=== PATIENT | male | born 1975 | race Two or more races ===

== ENCOUNTER → 2020-03-18 09:56 | Outpatient (BNVA) | payer OTHER, SELFPAY | PROVIDERS: PCP Internal Medicine; Referring Provider Internal Medicine; Visit Provider Hospitalist | DX: G47.33 Obstructive sleep apnea (adult) (pediatric) (principal); I25.10 Atherosclerotic heart disease of native coronary artery without angina pectoris; Z98.61 Coronary angioplasty status; Z91.030 Bee allergy status; Z86.19 Personal history of other infectious and parasitic diseases; Z99.89 Dependence on other enabling machines and devices; Z79.899 Other long term (current) drug therapy | CPT/HCPCS: 90686 ==

== ENCOUNTER → 2020-06-10 09:33 | Outpatient (BNVA) | payer OTHER, SELFPAY | PROVIDERS: PCP Internal Medicine; Visit Provider Hospitalist | DX: Z76.89 Persons encountering health services in other specified circumstances (principal) ==

== ENCOUNTER 2020-08-08 10:00 | Outpatient (REF) | payer OTHER, SELFPAY ==
--- NOTE | 2020-08-08 10:56 | ECG_ITS ---
Test Reason : J44.9 Blood Pressure : / mmHG Vent. Rate : 062 BPM Atrial Rate : 062 BPM P-R Int : 150 ms QRS Dur : 090 ms QT Int : 408 ms P-R-T Axes : 038 063 011 degrees QTc Int : 414 ms Normal sinus rhythm Normal ECG No previous ECGs available Referred By: Maximino Plascencia Electronically Signed By:MARAL MERCADO MD
[2020-08-08 11:48] LABS: MANUAL DIFF FLAG NO
[2020-08-08 11:53] LABS: Basophils Percent Auto 0.4 % (0-2); Eosinophils Percent Auto 0.4 % (0-4); Hematocrit 47.9 % (42-52); Hemoglobin 15.9 g/dl (14.0-18.0); Imm Gran Abs Auto 0.02 X10*3/uL (0.00-0.03); Imm Gran Pct Auto 0.4 % (0.0-0.4); Lymphocytes Percent Auto 38.1 % (20-40); Mean Corpuscular HGB Conc 33.2 g/dl (31.0-36.0); Mean Corpuscular Hemoglobin 29.7 pg (27.0-33.0); Mean Corpuscular Volume 89.4 fL (80-98); Mean Platelet Volume 9.2 fL (9.4-12.4); Monocytes Absolute Auto 0.4 X10*3/uL (0.1-1.2); Monocytes Percent Auto 7.3 % (2-11); Neutrophils Absolute Auto 2.8 X10*3/uL (2.0-8.3); Neutrophils Percent Auto 53.4 % (45-73); Platelet Count 277 X10*3/uL (160-400); Red Blood Count 5.36 X10*6/uL (4.60-5.80); Red Cell Distribution Width 12.7 % (11.0-16.0); White Blood Count 5.2 X10*3/uL (4.8-10.8)
[2020-08-08 12:17] LABS: Troponin-I High Sensitivity < 3.5 ng/L (<3.5-35.0)
[2020-08-08 12:34] LABS: SARS COV2 IgG Positive (Negative)
[2020-08-08 12:38] LABS: TSH reflex Free T4 2.81 uIU/mL (0.32-4.0)
[2020-08-08 13:17] LABS: Erythrocyte Sedimentation Rate 4 MM/HR (0-15)
== END 2020-08-08 10:01 | disposition home or self-care (01) ==
LOC: HO.LAB 10:00
PROVIDERS: PCP Internal Medicine; Visit Provider Hospitalist
DX: R06.00 Dyspnea, unspecified (principal); J44.9 Chronic obstructive pulmonary disease, unspecified; G47.33 Obstructive sleep apnea (adult) (pediatric); I25.10 Atherosclerotic heart disease of native coronary artery without angina pectoris; Z20.822 Contact with and (suspected) exposure to COVID-19; Z91.030 Bee allergy status; Z99.89 Dependence on other enabling machines and devices; Z95.1 Presence of aortocoronary bypass graft; Z79.82 Long term (current) use of aspirin; Z79.899 Other long term (current) drug therapy
CPT/HCPCS: 36415; 84443; 84484; 85025; 85652; 86769; 93005

== ENCOUNTER → 2020-11-11 11:03 | Outpatient (BNVA) | payer OTHER, SELFPAY | PROVIDERS: PCP Internal Medicine; Visit Provider Hospitalist ==

== ENCOUNTER → 2021-06-14 10:34 | Outpatient (BNVA) | payer OTHER, SELFPAY | PROVIDERS: PCP Internal Medicine; Visit Provider Hospitalist | DX: Z23 Encounter for immunization (principal); G47.33 Obstructive sleep apnea (adult) (pediatric); R06.02 Shortness of breath; I25.10 Atherosclerotic heart disease of native coronary artery without angina pectoris; F43.10 Post-traumatic stress disorder, unspecified | CPT/HCPCS: 90471; 90686 ==

== ENCOUNTER → 2022-08-03 09:52 | Outpatient (BNVA) | payer OTHER, SELFPAY | PROVIDERS: PCP Internal Medicine; Visit Provider Hospitalist | DX: Z13.89 Encounter for screening for other disorder (principal) ==

== ENCOUNTER 2023-02-06 09:59 | Outpatient (AMB) | payer OTHER, SELFPAY ==
[2023-02-06 10:10] VITALS: BP 128/70; PULSE 67; O2SAT 98; BMI 30.6
--- NOTE | 2023-02-06 10:10 | A.OFFVIS_ITS ---
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 He did recover from the COVID-19 infection and at the time had issues with shortness of breath and coughing that were persistent 4 months. Therefore became difficult for him to tolerate the CPAP. During the last visit we talked about the importance of going back on it. We had decrease the pressure down to CPAP of 6. even that low pressure is hard for him to use the machine. He has been using a nasal mask. We did have him use the nasal mask and coming for follow-up. Today he did bring his machine in we were able to downloaded. Last night his AHI was up to 34. the average for the week has been around 12.7 events per hour. He understands this too much in the level of CPAP support does not appear to be enough for him. Therefore we adjusted his machine and provide him with a fullface mask. He will try to get uses a fullface mask and will try to slowly increase the CPAP pressure. If he cannot tolerate the CPAP pressure and or his AHI continues to be elevated then a CPAP titration study will be warranted as he may benefit from a BiPAP because of difficulties with CPAP. 06/10/2020 the patient has a telephone visit today. Again he still having difficulties with the CPAP. Initially was tolerating the CPAP well until he developed COVID-19 infection. After the COVID-19 infection he has not been able to handle the pressures. Feels like he cannot breathe with the CPAP. Therefore, I did decrease the pressures down to 6 cm to see if he can tolerate that. He did use it a few times, but, still with elevated AHI of 12.6. Unfortunately he needs higher pressures. The only waiting to provide him the higher pressures would be through using BiPAP at this time. Due to the COVID-19 infections in the pandemic we are not able to perform a titration study. Due to the fact that he has significant coronary artery disease and significant cardiovascular risk factors we need to provide him with the effective therapy to minimize worsening prognosis from a cardiovascular standpoint. Therefore, requesting him to start BiPAP at this time. With the BiPAP he will be able to tolerate the higher pressures and therefore we can titrate the pressures accordingly in order to improve his severe OLAMIDE. I did talk to his local [employer] company regarding this and I did send a prescription over for him to get facilitated with BiPAP as soon as possible started with a pressure of 8/4. 08/08/2020 the patient is here for pulmonary follow-up visit. He did get the BiPAP machine starting at 8/4. He is tolerating the therapy much better. He does use it for more than 4 hours. The therapy has been affecting beneficial. I did download the machine the peers that he still having significant apneic episodes. His AHI still approximately 25 mainly apneic episodes. He does use a nasal mask. No significant leakage. I do believe that patient does require additional pressure, but, need to go up slowly in order for him to tolerated. Therefore increased to 9/5 and her reassess in 2 weeks to see if we need to adjusted further. In the meantime he stating that he has is episodes of nervousness. There has times where he gets agitated in gets restless and very shaky. He is concerned because he got like this prior to his myocardial infarction. He continues to use his cardiac medications with very good adherence. He has been depressed he has been gaining weight which also is depressing him as well. Therefore, patient will undergo blood work in addition to an EKG. 11/11/2020 the patient is here for pulmonary follow-up visit. Overall he is doing very well from sleep apnea standpoint. He is tolerating the BiPAP in the therapy has been effective in beneficial. He does use it for more than 4 hours a night. In based on the downloaded data his AHI is below 5. He is having some central apneas about to episodes an hour, but at this point will continue with current settings as he has tolerated doing well and seemed to be effective. The patient does have episodes of shortness of breath. The episodes appeared to be transient in usually associated with tremors and sense of panic. 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 The boiler house supervisor did mention the concerns for PTSD the as the results of the heart attack. At this point the episodes appear to be related to panic. He would benefit from additional psychological evaluation as this is affecting his cardiac and pulmonary status. In the meantime continue with the current BiPAP therapy. 06/14/2021 the patient is here for a pulmonary follow-up visit. He continues to use the BiPAP 04/01. Seems to be tolerating therapy much better. His AHI is down to 3.6 which is excellent for him. He is using about 70% of the time. The therapy has been affecting beneficial. He does have significant cardiac history. He does have an elevated cholesterol however and also has a very low HDL. 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 In the meantime the patient also has been dealing with this episodes of panic attacks . Sometimes these episodes have been from now for reason when he starts shaking in getting very uncomfortable. Although the patient is at risk for panic attacks I do believe he also has a cardiac history. It will be very reasonable for him to get an event monitor. I will relate this to his primary care doctor. In the meantime he will be sees seeking out different counseling programs in order to start counseling therapy. Right now during the pandemic this has been very difficult to arrange for patient's due to the lack of resources. 02/09/2022 the patient is here for pulmonary follow-up visit. He has been going to a lot of difficulty issues with increased stressors in the family. He has been preoccupied with all those issues. He has also had a few people dying the family is been very affected by the passing. In view of all these things the patient has not been using his BiPAP regularly. Also, he states that when he does use it it causes abdominal discomfort and gas pain. Explained to him that is likely swallowing the air. I did explain to him that I will try decreasing the pressure is some. Although, I know that it is likely that the current settings are more the therapeutic range to maintaining AHI below 5. 08/03/2022 the patient is here for a pulmonary follow-up visit. The patient has been feeling a little better. He has been working on exercising. He has unfortunately gained some weight which she is upset about. He is starting to walk on the treadmill. In the meantime he is trying to use the BiPAP. He had a period of time where he stopped using it and now getting back to the rhythm. The patient had his BiPAP adjusted to a lower pressure on 02/28. He was having abdominal distention and bloating. I am hopeful that with the lower pressure he tolerated better. Respiratory dobbins the patient is doing better he does not use any inhalers. 02/06/2023 the patient is here for pulmonary follow-up visit. The patient has not been using the BiPAP. He is having significant amount of stress in his life and sometimes he falls asleep without the BiPAP. He has a hard time putting the BiPAP on because then he has difficulty sleeping already. Therefore we talked about alternative options such as positional therapy. Will go ahead and request an overnight oximetry to assess his oxygen his heart rate specially because he has significant cardiovascular disease. Therefore he can try positional therapy and we can assess his progress. Otherwise we can consider a dental appliance. Currently he does have 1 wisdom tooth that is causing significant pain and likely needs to be removed. Therefore I will give him a course of antibiotics. He can not talk to the dentist regarding a oral mandibular device. Otherwise I can refer him to a local dentist that may be able to help him with that. The other option would be a hypoglossal nerve stimulator. The patient is not interested in any surgical interventions at this time. Will continue to discuss alternatives. He understands that the gold standard in the best treatment for his underlying obstructive sleep apnea is to go back to the BiPAP. The patient is also describing some chest tightness. He is has issues with anxiety and panic attacks. He had 1 episode recently in [place]. The patient gets very worked up very stressed. The patient denies any wheezing or chest tightness from bronchospasms. If he continues to have symptoms will request pulmonary function studies to assess for small airways disease and for the need of bronchodilator therapy. [facility] Medical History (Updated 08/05/22 @ 20:48 by Maximino Plascencia MD) OLAMIDE treated with BiPAP PTSD (post-traumatic stress disorder) Dyspnea OLAMIDE on CPAP CAD (coronary artery disease) OLAMIDE (obstructive sleep apnea) Social History (Updated 02/09/22 @ 10:40 by HELENA Luna) Patient Tobacco Use Status: Never used Tobacco Review of Systems Const Reports daytime sleepiness, Reports difficulty sleeping, Reports headache(s), Denies night sweats and Reports weight gain ENT Denies change in voice, Reports headache(s), Denies lip swelling, Denies mouth pain, Reports nasal congestion, Reports nasal discharge and Denies tongue swelling Card Denies chest pain and Denies dyspnea Resp Denies cough and Denies dyspnea GI Reports abdominal pain, Reports GI cramping and Reports excessive flatus Musc Denies no additional complaints Neuro Denies Neuro-related abnormal movements and Reports headache(s) Psych Denies no additional complaints, Reports anxiety, Reports irritability and Reports panic attacks Ras/Lymph Denies easy bleeding and Denies lymphadenopathy Aller/Immun Denies lip swelling and Denies tongue swelling Physical Exam Vital Signs: Last Vital Signs Pulse 67 02/06/23 10:10 BP 128/70 02/06/23 10:10 Pulse Ox 98 02/06/23 10:10 Oxygen Delivery Method Room Air 02/06/23 10:10 BMI result Body Mass Index 30.6 Const General: comfortable and alert Neck Neck: Yes normal visual inspection, Yes full ROM and Yes no lymphadenopathy Chest Chest palpation & inspection: normal inspection of the chest Resp Auscultation: clear to auscultation bilaterally Cardio Rate: regular rate Rhythm: regular rhythm Heart sounds: S1 normal heart sound present and S2 normal heart sound present GI Palpation (GI): Soft to palpation and nontender Auscultation: normal bowel sounds Skin General skin exam: rashes and/or lesions noted Assessment & Plan Assessment & Plan (1) CAD (coronary artery disease): Code(s): I25.10 - Atherosclerotic heart disease of [place] coronary artery without angina pectoris Qualifiers: Associated angina: without angina Coronary Disease-Associated Artery/Lesion type: [place] artery [place] vs. transplanted heart: [place] heart Qualified Code(s): I25.10 - Atherosclerotic heart disease of [place] coronary artery without angina pectoris (2) OLAMIDE treated with BiPAP: Code(s): G47.33 - Obstructive sleep apnea (adult) (pediatric) (3) Dyspnea: Code(s): R06.00 - Dyspnea, unspecified Qualifiers: Dyspnea type: dyspnea on exertion Qualified Code(s): R06.09 - Other forms of dyspnea Plan BIPAP therapy 04/01, 02/28. Needs to start using it regularly. We did talk about OMD if continues to have a hard time with the BIPAP overnight oximetry with positional therapy continue cardioprotective meds Consider PFTs F/U 6 months Orders: Orders Overnight Pulse Oximetry Today I25.10 - Atherosclerotic heart disease of [place] coronary artery without angina pectoris, R06.00 - Dyspnea, unspecified Medications: New amoxicillin-pot clavulanate 875-125 mg 1 tab PO BID 10 days 20 tabs 0RF Coding Level of Care Code Est Pt Level 4 (54111) Diagnoses Coronary artery disease involving [place] coronary artery of [place] heart without angina pectoris I25.10 Associated angina: without angina Coronary Disease-Associated Artery/Lesion type: [place] artery [place] vs. transplanted heart: [place] heart OLAMIDE treated with BiPAP G47.33 Dyspnea on exertion R06.09 Dyspnea type: dyspnea on exertion Time Spent (min) 20
== END 2023-02-06 10:48 | disposition home or self-care (01) ==
PROVIDERS: PCP Internal Medicine; Visit Provider Hospitalist
DX: I25.10 Atherosclerotic heart disease of native coronary artery without angina pectoris (principal); G47.33 Obstructive sleep apnea (adult) (pediatric); R06.09 Other forms of dyspnea
CPT/HCPCS: 99214

== ENCOUNTER → 2023-02-06 09:59 | Outpatient (BNVA) | payer OTHER, SELFPAY | PROVIDERS: PCP Internal Medicine; Visit Provider Hospitalist ==

== ENCOUNTER 2023-08-09 10:38 | Outpatient (AMB) | payer OTHER, SELFPAY ==
--- NOTE | 2023-08-09 10:45 | MHC.OFFVIS ---
Intake Vital Signs 08/09/23 10:56 Height 5 ft 9 in Weight 205 lb BMI 30.3 BP 128/70 Blood Pressure Location Lt brachial Position Sitting Pulse 70 Pulse Source Pulse Oximeter Pulse Oximetry (%) 97 Oxygen Delivery Method Room Air Intake Visit Reasons: Asthma Heat Treater Required: No Allergies Bee Stings Allergy (Mild, Uncoded 08/09/23 11:03) Hives HPI HPI Comments History of Present Illness Details The patient is a 47-year-old gentleman with a known history of CAD status post PCI in addition to obstructive sleep apnea on CPAP. He did recover from the COVID-19 infection and at the time had issues with shortness of breath and coughing that were persistent 4 months. Therefore became difficult for him to tolerate the CPAP. During the last visit we talked about the importance of going back on it. We had decrease the pressure down to CPAP of 6. even that low pressure is hard for him to use the machine. He has been using a nasal mask. We did have him use the nasal mask and coming for follow-up. Today he did bring his machine in we were able to downloaded. Last night his AHI was up to 34. the average for the week has been around 12.7 events per hour. He understands this too much in the level of CPAP support does not appear to be enough for him. Therefore we adjusted his machine and provide him with a fullface mask. He will try to get uses a fullface mask and will try to slowly increase the CPAP pressure. If he cannot tolerate the CPAP pressure and or his AHI continues to be elevated then a CPAP titration study will be warranted as he may benefit from a BiPAP because of difficulties with CPAP. 02/06/2023 the patient is here for pulmonary follow-up visit. The patient has not been using the BiPAP. He is having significant amount of stress in his life and sometimes he falls asleep without the BiPAP. He has a hard time putting the BiPAP on because then he has difficulty sleeping already. Therefore we talked about alternative options such as positional therapy. Will go ahead and request an overnight oximetry to assess his oxygen his heart rate specially because he has significant cardiovascular disease. Therefore he can try positional therapy and we can assess his progress. Otherwise we can consider a dental appliance. Currently he does have 1 wisdom tooth that is causing significant pain and likely needs to be removed. Therefore I will give him a course of antibiotics. He can not talk to the dentist regarding a oral mandibular device. Otherwise I can refer him to a local dentist that may be able to help him with that. The other option would be a hypoglossal nerve stimulator. The patient is not interested in any surgical interventions at this time. Will continue to discuss alternatives. He understands that the gold standard in the best treatment for his underlying obstructive sleep apnea is to go back to the BiPAP. The patient is also describing some chest tightness. He is has issues with anxiety and panic attacks. He had 1 episode recently in [place]. The patient gets very worked up very stressed. The patient denies any wheezing or chest tightness from bronchospasms. If he continues to have symptoms will request pulmonary function studies to assess for small airways disease and for the need of bronchodilator therapy. 08/09/2023 the patient is here for a pulmonary follow-up visit. Overall the patient has been doing okay from a respiratory status. Unfortunately his BiPAP stop working. It will not turn on. Therefore he thought that the [employer] may have remotely stop the machine from working. I did emphasize to him that they would not do that. Most likely machine is not working correctly or the plug is not working. Therefore, I did call the [employer] company. They will reach out to him to see how they can evaluate the machine. The meantime he is going to try different plug or cord. Should be using it. When he does not use it he does have evidence of documented sleep apnea from his . She has not wake him up. He understands he has a cardiac condition and has increased cardiovascular risk if he does not use the BiPAP or the PAP therapy. Therefore, once this working he should start using it quickly. He will bring it into the next visit. From a respiratory status is doing well. He has not required any rescue inhaler. He continues to have the issues with anxiety and stress specially since they are taking care of multiple people at this time including parents and children and grandchildren. He has not been exercising as much. He is gaining weight. He knows that he needs to start exercising regularly because the wait will also worsen his sleep apnea and also cardiovascular risk. [facility] Medical History (Updated 08/05/22 @ 20:48 by Maximino Plascencia MD) OLAMIDE treated with BiPAP PTSD (post-traumatic stress disorder) Dyspnea OLAMIDE on CPAP CAD (coronary artery disease) OLAMIDE (obstructive sleep apnea) Social History (Updated 02/09/22 @ 10:40 by HELENA Luna) Patient Tobacco Use Status: Never used Tobacco Review of Systems Const Reports daytime sleepiness, Reports difficulty sleeping, Reports headache(s), Denies night sweats and Reports weight gain ENT Denies change in voice, Reports headache(s), Denies lip swelling, Denies mouth pain, Reports nasal congestion, Reports nasal discharge and Denies tongue swelling Card Denies chest pain and Denies dyspnea Resp Denies cough and Denies dyspnea GI Reports abdominal pain, Reports GI cramping and Reports excessive flatus Musc Denies no additional complaints Neuro Denies Neuro-related abnormal movements and Reports headache(s) Psych Denies no additional complaints, Reports anxiety, Reports irritability and Reports panic attacks Ras/Lymph Denies easy bleeding and Denies lymphadenopathy Aller/Immun Denies lip swelling and Denies tongue swelling Physical Exam Vital Signs: Last Vital Signs Pulse 70 08/09/23 10:56 BP 128/70 08/09/23 10:56 Pulse Ox 97 08/09/23 10:56 Oxygen Delivery Method Room Air 08/09/23 10:56 BMI result Body Mass Index 30.3 Const General: comfortable and alert Neck Neck: Yes normal visual inspection, Yes full ROM and Yes no lymphadenopathy Chest Chest palpation & inspection: normal inspection of the chest Resp Auscultation: clear to auscultation bilaterally Cardio Rate: regular rate Rhythm: regular rhythm Heart sounds: S1 normal heart sound present and S2 normal heart sound present GI Palpation (GI): Soft to palpation and nontender Auscultation: normal bowel sounds Skin General skin exam: rashes and/or lesions noted Office Procedures Flu Questionnaire Does the patient have a severe egg allergy?: No Does the patient have severe life threatening allergies?: No Does the patient have a fever or illness today?: No Has the patient ever had Guillain-[place] Syndrome?: No Has the patient ever had any past reaction to a flu shot?: No Immunizations flu vacc [id number] 6mos up(PF) 60 mcg(15 mcgx4)/0.5 mL IM syringe Performing Provider: Maximino Plascencia MD [place] [facility] [place] [facility] [place] Administered by: Tonie Fuentes LPN on 08/09/23 11:25 Dose Route Admin Location Dispensed Lot Number Expiration Date [employer] 0.5 mL IM Left Deltoid 0.5 mL [id number] 11/24/23 [id number] PK Clean VIS Given Date VIS Provided VIS Publication Date 08/09/23 Single Vaccine 20 Eligibility Eligibility Date Funding Source Not VF Eligible 08/09/23 Private Assessment & Plan Assessment & Plan (1) CAD (coronary artery disease): Code(s): I25.10 - Atherosclerotic heart disease of [place] coronary artery without angina pectoris Qualifiers: Coronary Disease-Associated Artery/Lesion type: [place] artery [place] vs. transplanted heart: [place] heart Associated angina: without angina Qualified Code(s): I25.10 - Atherosclerotic heart disease of [place] coronary artery without angina pectoris (2) OLAMIDE treated with BiPAP: Code(s): G47.33 - Obstructive sleep apnea (adult) (pediatric) (3) Dyspnea: Code(s): R06.00 - Dyspnea, unspecified Qualifiers: Dyspnea type: dyspnea on exertion Qualified Code(s): R06.09 - Other forms of dyspnea Plan BIPAP therapy 04/01, 02/28. Needs to start using it regularly. DME to evaluate the machine continue cardioprotective meds Flu shot F/U 4 months Orders: Orders Influenza [id number] Immunization Today G47.33 - Obstructive sleep apnea (adult) (pediatric), Z99.89 - Dependence on other enabling machines and devices Medications: Discontinued amoxicillin-pot clavulanate 875-125 mg Discontinued Reason: Patient Completed Course 1 tab PO BID 10 days 20 tabs 0RF Coding Level of Care Code Est Pt Level 4 (30371) Diagnoses Coronary artery disease involving [place] coronary artery of [place] heart without angina pectoris I25.10 Coronary Disease-Associated Artery/Lesion type: [place] artery [place] vs. transplanted heart: [place] heart Associated angina: without angina OLAMIDE treated with BiPAP G47.33 Dyspnea on exertion R06.09 Dyspnea type: dyspnea on exertion Time Spent (min) 40
[2023-08-09 10:56] VITALS: BP 128/70; PULSE 70; O2SAT 97; BMI 30.3
== END 2023-08-09 11:16 | disposition home or self-care (01) ==
PROVIDERS: PCP Internal Medicine; Visit Provider Hospitalist
DX: I25.10 Atherosclerotic heart disease of native coronary artery without angina pectoris (principal); G47.33 Obstructive sleep apnea (adult) (pediatric); R06.09 Other forms of dyspnea; Z99.89 Dependence on other enabling machines and devices
CPT/HCPCS: 99214

== ENCOUNTER → 2023-08-09 10:38 | Outpatient (BNVA) | payer OTHER, SELFPAY | PROVIDERS: PCP Internal Medicine; Visit Provider Hospitalist | DX: R06.09 Other forms of dyspnea (principal); I25.10 Atherosclerotic heart disease of native coronary artery without angina pectoris; G47.33 Obstructive sleep apnea (adult) (pediatric); Z23 Encounter for immunization | CPT/HCPCS: 90471; 90686 ==

== ENCOUNTER 2023-12-11 11:01 | Outpatient (AMB) | payer OTHER, SELFPAY ==
--- NOTE | 2023-12-11 11:06 | MHC.OFFVIS ---
Vital Signs 12/11/23 11:07 Height 5 ft 9 in Weight 204 lb 2.369 oz BMI 30.1 BP 118/70 Blood Pressure Location Lt brachial Position Sitting Pulse 66 Pulse Source Pulse Oximeter Pulse Oximetry (%) 97 Oxygen Delivery Method Room Air Intake Visit Reasons: Asthma Station Superintendent Required: No Allergies Bee Stings Allergy (Mild, Uncoded 12/11/23 11:11) Hives HPI Comments Details: The patient is a 48-year-old gentleman with a known history of CAD status post PCI in addition to obstructive sleep apnea on CPAP. He did recover from the COVID-19 infection and at the time had issues with shortness of breath and coughing that were persistent 4 months. Therefore became difficult for him to tolerate the CPAP. During the last visit we talked about the importance of going back on it. We had decrease the pressure down to CPAP of 6. even that low pressure is hard for him to use the machine. He has been using a nasal mask. We did have him use the nasal mask and coming for follow-up. Today he did bring his machine in we were able to downloaded. Last night his AHI was up to 34. the average for the week has been around 12.7 events per hour. He understands this too much in the level of CPAP support does not appear to be enough for him. Therefore we adjusted his machine and provide him with a fullface mask. He will try to get uses a fullface mask and will try to slowly increase the CPAP pressure. If he cannot tolerate the CPAP pressure and or his AHI continues to be elevated then a CPAP titration study will be warranted as he may benefit from a BiPAP because of difficulties with CPAP. 02/06/2023 the patient is here for pulmonary follow-up visit. The patient has not been using the BiPAP. He is having significant amount of stress in his life and sometimes he falls asleep without the BiPAP. He has a hard time putting the BiPAP on because then he has difficulty sleeping already. Therefore we talked about alternative options such as positional therapy. Will go ahead and request an overnight oximetry to assess his oxygen his heart rate specially because he has significant cardiovascular disease. Therefore he can try positional therapy and we can assess his progress. Otherwise we can consider a dental appliance. Currently he does have 1 wisdom tooth that is causing significant pain and likely needs to be removed. Therefore I will give him a course of antibiotics. He can not talk to the dentist regarding a oral mandibular device. Otherwise I can refer him to a local dentist that may be able to help him with that. The other option would be a hypoglossal nerve stimulator. The patient is not interested in any surgical interventions at this time. Will continue to discuss alternatives. He understands that the gold standard in the best treatment for his underlying obstructive sleep apnea is to go back to the BiPAP. The patient is also describing some chest tightness. He is has issues with anxiety and panic attacks. He had 1 episode recently in [place]. The patient gets very worked up very stressed. The patient denies any wheezing or chest tightness from bronchospasms. If he continues to have symptoms will request pulmonary function studies to assess for small airways disease and for the need of bronchodilator therapy. 08/09/2023 the patient is here for a pulmonary follow-up visit. Overall the patient has been doing okay from a respiratory status. Unfortunately his BiPAP stop working. It will not turn on. Therefore he thought that the [employer] may have remotely stop the machine from working. I did emphasize to him that they would not do that. Most likely machine is not working correctly or the plug is not working. Therefore, I did call the [employer] company. They will reach out to him to see how they can evaluate the machine. The meantime he is going to try different plug or cord. Should be using it. When he does not use it he does have evidence of documented sleep apnea from his . She has not wake him up. He understands he has a cardiac condition and has increased cardiovascular risk if he does not use the BiPAP or the PAP therapy. Therefore, once this working he should start using it quickly. He will bring it into the next visit. From a respiratory status is doing well. He has not required any rescue inhaler. He continues to have the issues with anxiety and stress specially since they are taking care of multiple people at this time including parents and children and grandchildren. He has not been exercising as much. He is gaining weight. He knows that he needs to start exercising regularly because the wait will also worsen his sleep apnea and also cardiovascular risk. 12/11/2023 The patient is here for apulmonary follow up visit. The patient has not been using the BIPAP. Has not been able to sleep with it. He does have increase time time drowsiness and panic attacks. His EPWORTH score is elevated at 9/24. The patient has significant cardiovascular risk factors. Would be beneficial to repeat a sleep study to assess his degree of OLAMIDE in order to consider further adjustments of his PAP therapy or alternative therapies. The patient also has been having insomnia. He does not want to take any rx medicine for it. He is willing to take Melatonin. I will send a script to the pharmacy. We will follow up after his sleep study. [facility] Medical History (Updated 12/11/23 @ 21:51 by Maximino Plascencia MD) Insomnia OLAMIDE treated with BiPAP PTSD (post-traumatic stress disorder) Dyspnea OLAMIDE on CPAP CAD (coronary artery disease) OLAMIDE (obstructive sleep apnea) Social History (Updated 02/09/22 @ 10:40 by HELENA Luna) Patient Tobacco Use Status: Never used Tobacco Review of Systems Const Reports daytime sleepiness, Reports difficulty sleeping, Reports headache(s), Denies night sweats and Reports weight gain ENT Denies change in voice, Reports headache(s), Denies lip swelling, Denies mouth pain, Reports nasal congestion, Reports nasal discharge and Denies tongue swelling Card Denies chest pain and Denies dyspnea Resp Denies cough and Denies dyspnea GI Reports abdominal pain, Reports GI cramping and Reports excessive flatus Musc Denies no additional complaints Neuro Denies Neuro-related abnormal movements and Reports headache(s) Psych Denies no additional complaints, Reports anxiety, Reports irritability and Reports panic attacks Ras/Lymph Denies easy bleeding and Denies lymphadenopathy Aller/Immun Denies lip swelling and Denies tongue swelling Physical Exam Vital Signs: Last Vital Signs Pulse 66 12/11/23 11:07 BP 118/70 12/11/23 11:07 Pulse Ox 97 12/11/23 11:07 Oxygen Delivery Method Room Air 12/11/23 11:07 BMI result Body Mass Index 30.1 Const General: comfortable and alert Neck Neck: Yes normal visual inspection, Yes full ROM and Yes no lymphadenopathy Chest Chest palpation & inspection: normal inspection of the chest Resp Auscultation: clear to auscultation bilaterally Cardio Rate: regular rate Rhythm: regular rhythm Heart sounds: S1 normal heart sound present and S2 normal heart sound present GI Palpation (GI): Soft to palpation and nontender Auscultation: normal bowel sounds Skin General skin exam: rashes and/or lesions noted Assessment & Plan Assessment & Plan (1) CAD (coronary artery disease): Code(s): I25.10 - Atherosclerotic heart disease of [place] coronary artery without angina pectoris Category: Medical Qualifiers: Coronary Disease-Associated Artery/Lesion type: [place] artery [place] vs. transplanted heart: [place] heart Associated angina: without angina Qualified Code(s): I25.10 - Atherosclerotic heart disease of [place] coronary artery without angina pectoris (2) OLAMIDE treated with BiPAP: Code(s): G47.33 - Obstructive sleep apnea (adult) (pediatric) Category: Medical (3) Dyspnea: Code(s): R06.00 - Dyspnea, unspecified Category: Medical Qualifiers: Dyspnea type: dyspnea on exertion Qualified Code(s): R06.09 - Other forms of dyspnea (4) Insomnia: Code(s): G47.00 - Insomnia, unspecified Category: Medical Qualifiers: Insomnia type: primary Qualified Code(s): F51.01 - Primary insomnia Plan Requesting PSG, ideally split study continue cardioprotective meds start Melatonin for sleep F/U 4 months Orders: Orders RT PSG in-lab sleep study Today G47.33 - Obstructive sleep apnea (adult) (pediatric) Medications: New melatonin 5 mg PO BEDTIME 30 days PRN 30 tabs 10RF sleep Coding Level of Care Code Est Pt Level 4 (79211) Diagnoses Coronary artery disease involving [place] coronary artery of [place] heart without angina pectoris I25.10 Coronary Disease-Associated Artery/Lesion type: [place] artery [place] vs. transplanted heart: [place] heart Associated angina: without angina OLAMIDE treated with BiPAP G47.33 Dyspnea on exertion R06.09 Dyspnea type: dyspnea on exertion Primary insomnia F51.01 Insomnia type: primary Time Spent (min) 17
[2023-12-11 11:07] VITALS: BP 118/70; PULSE 66; O2SAT 97; BMI 30.1
== END 2023-12-11 11:26 | disposition home or self-care (01) ==
PROVIDERS: PCP Internal Medicine; Visit Provider Hospitalist
DX: I25.10 Atherosclerotic heart disease of native coronary artery without angina pectoris (principal); G47.33 Obstructive sleep apnea (adult) (pediatric); R06.09 Other forms of dyspnea; F51.01 Primary insomnia
CPT/HCPCS: 99214

== ENCOUNTER → 2023-12-11 11:01 | Outpatient (BNVA) | payer OTHER, SELFPAY | PROVIDERS: PCP Internal Medicine; Visit Provider Hospitalist ==

== ENCOUNTER 2024-04-17 14:31 | Outpatient (AMB) | payer OTHER, SELFPAY ==
[2024-04-17 14:47] VITALS: BP 102/70; PULSE 69; O2SAT 98; BMI 30.1
--- NOTE | 2024-04-17 14:47 | MHC.OFFVIS ---
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 He did recover from the COVID-19 infection and at the time had issues with shortness of breath and coughing that were persistent 4 months. Therefore became difficult for him to tolerate the CPAP. During the last visit we talked about the importance of going back on it. We had decrease the pressure down to CPAP of 6. even that low pressure is hard for him to use the machine. He has been using a nasal mask. We did have him use the nasal mask and coming for follow-up. Today he did bring his machine in we were able to downloaded. Last night his AHI was up to 34. the average for the week has been around 12.7 events per hour. He understands this too much in the level of CPAP support does not appear to be enough for him. Therefore we adjusted his machine and provide him with a fullface mask. He will try to get uses a fullface mask and will try to slowly increase the CPAP pressure. If he cannot tolerate the CPAP pressure and or his AHI continues to be elevated then a CPAP titration study will be warranted as he may benefit from a BiPAP because of difficulties with CPAP. 02/06/2023 the patient is here for pulmonary follow-up visit. The patient has not been using the BiPAP. He is having significant amount of stress in his life and sometimes he falls asleep without the BiPAP. He has a hard time putting the BiPAP on because then he has difficulty sleeping already. Therefore we talked about alternative options such as positional therapy. Will go ahead and request an overnight oximetry to assess his oxygen his heart rate specially because he has significant cardiovascular disease. Therefore he can try positional therapy and we can assess his progress. Otherwise we can consider a dental appliance. Currently he does have 1 wisdom tooth that is causing significant pain and likely needs to be removed. Therefore I will give him a course of antibiotics. He can not talk to the dentist regarding a oral mandibular device. Otherwise I can refer him to a local dentist that may be able to help him with that. The other option would be a hypoglossal nerve stimulator. The patient is not interested in any surgical interventions at this time. Will continue to discuss alternatives. He understands that the gold standard in the best treatment for his underlying obstructive sleep apnea is to go back to the BiPAP. The patient is also describing some chest tightness. He is has issues with anxiety and panic attacks. He had 1 episode recently in [place]. The patient gets very worked up very stressed. The patient denies any wheezing or chest tightness from bronchospasms. If he continues to have symptoms will request pulmonary function studies to assess for small airways disease and for the need of bronchodilator therapy. 08/09/2023 the patient is here for a pulmonary follow-up visit. Overall the patient has been doing okay from a respiratory status. Unfortunately his BiPAP stop working. It will not turn on. Therefore he thought that the [employer] may have remotely stop the machine from working. I did emphasize to him that they would not do that. Most likely machine is not working correctly or the plug is not working. Therefore, I did call the [email or web address] company. They will reach out to him to see how they can evaluate the machine. The meantime he is going to try different plug or cord. Should be using it. When he does not use it he does have evidence of documented sleep apnea from his . She has not wake him up. He understands he has a cardiac condition and has increased cardiovascular risk if he does not use the BiPAP or the PAP therapy. Therefore, once this working he should start using it quickly. He will bring it into the next visit. From a respiratory status is doing well. He has not required any rescue inhaler. He continues to have the issues with anxiety and stress specially since they are taking care of multiple people at this time including parents and children and grandchildren. He has not been exercising as much. He is gaining weight. He knows that he needs to start exercising regularly because the wait will also worsen his sleep apnea and also cardiovascular risk. 04/17/2024 The patient is here for a pulmonary follow up visit. The patient has not been using the BIPAP. Has not been able to sleep with it. He does have increase time time drowsiness and panic attacks. His EPWORTH score is elevated at 10/24. The patient has significant cardiovascular risk factors. Would be beneficial to repeat a sleep study to assess his degree of OLAMIDE in order to consider further adjustments of his PAP therapy or alternative therapies. The patient also has been having insomnia. He does not want to take any rx medicine for it. He is willing to take Melatonin. I will send a script to the pharmacy. We tried scheduling a sleep study, but insurance declined. I did provide him with a f40 mask that I want him to start using. He will start using the BIPAP at this time. In the meantime his breathing is well. [facility] Medical History (Updated 12/11/23 @ 21:51 by Maximino Plascencia MD) Insomnia OLAMIDE treated with BiPAP PTSD (post-traumatic stress disorder) Dyspnea OLAMIDE on CPAP CAD (coronary artery disease) OLAMIDE (obstructive sleep apnea) Social History Patient Tobacco Use Status: Never used Tobacco Review of Systems Const Reports daytime sleepiness, Reports difficulty sleeping, Reports headache(s), Denies night sweats and Reports weight gain ENT Denies change in voice, Reports headache(s), Denies lip swelling, Denies mouth pain, Reports nasal congestion, Reports nasal discharge and Denies tongue swelling Card Denies chest pain and Denies dyspnea Resp Denies cough and Denies dyspnea GI Reports abdominal pain, Reports GI cramping and Reports excessive flatus Musc Denies no additional complaints Neuro Denies Neuro-related abnormal movements and Reports headache(s) Psych Denies no additional complaints, Reports anxiety, Reports irritability and Reports panic attacks Ras/Lymph Denies easy bleeding and Denies lymphadenopathy Aller/Immun Denies lip swelling and Denies tongue swelling Physical Exam Vital Signs: Last Vital Signs Pulse 69 04/17/24 14:47 BP 102/70 04/17/24 14:47 Pulse Ox 98 04/17/24 14:47 Oxygen Delivery Method Room Air 04/17/24 14:47 BMI result Body Mass Index 30.1 Const General: comfortable and alert Neck Neck: Yes normal visual inspection, Yes full ROM and Yes no lymphadenopathy Chest Chest palpation & inspection: normal inspection of the chest Resp Auscultation: clear to auscultation bilaterally Cardio Rate: regular rate Rhythm: regular rhythm Heart sounds: S1 normal heart sound present and S2 normal heart sound present GI Palpation (GI): Soft to palpation and nontender Auscultation: normal bowel sounds Skin General skin exam: rashes and/or lesions noted Assessment & Plan Assessment & Plan (1) CAD (coronary artery disease): Code(s): I25.10 - Atherosclerotic heart disease of [place] coronary artery without angina pectoris Category: Medical Qualifiers: Associated angina: without angina Coronary Disease-Associated Artery/Lesion type: [place] artery [place] vs. transplanted heart: [place] heart Qualified Code(s): I25.10 - Atherosclerotic heart disease of [place] coronary artery without angina pectoris (2) OLAMIDE treated with BiPAP: Code(s): G47.33 - Obstructive sleep apnea (adult) (pediatric) Category: Medical (3) Dyspnea: Code(s): R06.00 - Dyspnea, unspecified Category: Medical Qualifiers: Dyspnea type: dyspnea on exertion Qualified Code(s): R06.09 - Other forms of dyspnea (4) Insomnia: Code(s): G47.00 - Insomnia, unspecified Category: Medical Qualifiers: Insomnia type: primary Qualified Code(s): F51.01 - Primary insomnia Plan Restart BIPAP, will trial F40 continue cardioprotective meds Melatonin for sleep F/U 4-6 months Coding Level of Care Code Est Pt Level 4 (04476) Diagnoses Coronary artery disease involving [place] coronary artery of [place] heart without angina pectoris I25.10 Associated angina: without angina Coronary Disease-Associated Artery/Lesion type: [place] artery [place] vs. transplanted heart: [place] heart OLAMIDE treated with BiPAP G47.33 Dyspnea on exertion R06.09 Dyspnea type: dyspnea on exertion Primary insomnia F51.01 Insomnia type: primary Time Spent (min) 16
== END 2024-04-17 15:10 | disposition home or self-care (01) ==
PROVIDERS: PCP Internal Medicine; Visit Provider Hospitalist
DX: I25.10 Atherosclerotic heart disease of native coronary artery without angina pectoris (principal); G47.33 Obstructive sleep apnea (adult) (pediatric); R06.09 Other forms of dyspnea; F51.01 Primary insomnia
CPT/HCPCS: 99214

== ENCOUNTER 2024-08-14 09:12 | Outpatient (AMB) | payer OTHER, SELFPAY ==
--- NOTE | 2024-08-14 09:17 | A.OFFVIS_ITS ---
Vital Signs 08/14/24 09:18 Height 5 ft 9 in Weight 207 lb 3.752 oz BMI 30.6 BP 122/80 Blood Pressure Location Rt brachial Position Sitting Pulse 78 Pulse Source Pulse Oximeter Pulse Oximetry (%) 96 Oxygen Delivery Method Room Air Intake Visit Reasons: Asthma Allergies Bee Stings Allergy (Mild, Uncoded 08/14/24 09:21) Hives HPI Comments Details: The patient is a 48-year-old gentleman with a known history of CAD status post PCI in addition to obstructive sleep apnea on CPAP. He did recover from the COVID-19 infection and at the time had issues with shortness of breath and coughing that were persistent 4 months. Therefore became difficult for him to tolerate the CPAP. During the last visit we talked about the importance of going back on it. We had decrease the pressure down to CPAP of 6. even that low pressure is hard for him to use the machine. He has been using a nasal mask. We did have him use the nasal mask and coming for follow-up. Today he did bring his machine in we were able to downloaded. Last night his AHI was up to 34. the average for the week has been around 12.7 events per hour. He understands this too much in the level of CPAP support does not appear to be enough for him. Therefore we adjusted his machine and provide him with a fullface mask. He will try to get uses a fullface mask and will try to slowly increase the CPAP pressure. If he cannot tolerate the CPAP pressure and or his AHI continues to be elevated then a CPAP titration study will be warranted as he may benefit from a BiPAP because of difficulties with CPAP. 02/06/2023 the patient is here for pulmonary follow-up visit. The patient has not been using the BiPAP. He is having significant amount of stress in his life and sometimes he falls asleep without the BiPAP. He has a hard time putting the BiPAP on because then he has difficulty sleeping already. Therefore we talked about alternative options such as positional therapy. Will go ahead and request an overnight oximetry to assess his oxygen his heart rate specially because he has significant cardiovascular disease. Therefore he can try positional therapy and we can assess his progress. Otherwise we can consider a dental appliance. Currently he does have 1 wisdom tooth that is causing significant pain and likely needs to be removed. Therefore I will give him a course of antibiotics. He can not talk to the dentist regarding a oral mandibular device. Otherwise I can refer him to a local dentist that may be able to help him with that. The other option would be a hypoglossal nerve stimulator. The patient is not interested in any surgical interventions at this time. Will continue to discuss alternatives. He understands that the gold standard in the best treatment for his underlying obstructive sleep apnea is to go back to the BiPAP. The patient is also describing some chest tightness. He is has issues with anxiety and panic attacks. He had 1 episode recently in [place]. The patient gets very worked up very stressed. The patient denies any wheezing or chest tightness from bronchospasms. If he continues to have symptoms will request pulmonary function studies to assess for small airways disease and for the need of bronchodilator therapy. 08/09/2023 the patient is here for a pulmonary follow-up visit. Overall the patient has been doing okay from a respiratory status. Unfortunately his BiPAP stop working. It will not turn on. Therefore he thought that the [employer] may have remotely stop the machine from working. I did emphasize to him that they would not do that. Most likely machine is not working correctly or the plug is not working. Therefore, I did call the [employer] company. They will reach out to him to see how they can evaluate the machine. The meantime he is going to try different plug or cord. Should be using it. When he does not use it he does have evidence of documented sleep apnea from his . She has not wake him up. He understands he has a cardiac condition and has increased cardiovascular risk if he does not use the BiPAP or the PAP therapy. Therefore, once this working he should start using it quickly. He will bring it into the next visit. From a respiratory status is doing well. He has not required any rescue inhaler. He continues to have the issues with anxiety and stress specially since they are taking care of multiple people at this time including parents and children and grandchildren. He has not been exercising as much. He is gaining weight. He knows that he needs to start exercising regularly because the wait will also worsen his sleep apnea and also cardiovascular risk. 04/17/2024 The patient is here for a pulmonary follow up visit. The patient has not been using the BIPAP. Has not been able to sleep with it. He does have increase time time drowsiness and panic attacks. His EPWORTH score is elevated at 10/24. The patient has significant cardiovascular risk factors. Would be beneficial to repeat a sleep study to assess his degree of OLAMIDE in order to consider further adjustments of his PAP therapy or alternative therapies. The patient also has been having insomnia. He does not want to take any rx medicine for it. He is willing to take Melatonin. I will send a script to the pharmacy. We tried scheduling a sleep study, but insurance declined. I did provide him with a f40 mask that I want him to start using. He will start using the BIPAP at this time. In the meantime his breathing is well. 08/14/2024 the patient is here for pulmonary follow-up visit. Overall he is doing okay. Starting to exercise more regularly. He is also going to the trach and working on his aerobic capacity which is reassuring. Denies any chest pains or any significant shortness of breath. He has a hard time with his BiPAP. He does have moderate degree of sleep apnea based on his sleep study and does have significant cardiovascular risk factors including heart attack. Therefore is important to treat his sleep apnea. He understands that. Although we tried CPAP sent BiPAP since he does not seem to be able to tolerated sufficient en ough. Therefore, we did talk about alternative therapies including a oral mandibular advancement device. 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 I will give her a for him to a dentist . Provide him with 1. At this point he has tried and failed the gold standard which is PAP therapy. And now will go ahead and try the oral mandibular device. Once he is tablets with morning used to it then we can request a sleep study to make sure that is working adequately. [facility] Medical History (Updated 12/11/23 @ 21:51 by Maximino Plascencia MD) Insomnia OLAMIDE treated with BiPAP PTSD (post-traumatic stress disorder) Dyspnea OLAMIDE on CPAP CAD (coronary artery disease) OLAMIDE (obstructive sleep apnea) Social History Patient Tobacco Use Status: Never used Tobacco Review of Systems Const Reports daytime sleepiness, Reports difficulty sleeping, Reports headache(s), Denies night sweats and Reports weight gain ENT Denies change in voice, Reports headache(s), Denies lip swelling, Denies mouth pain, Reports nasal congestion, Reports nasal discharge and Denies tongue swelling Card Denies chest pain and Denies dyspnea Resp Denies cough and Denies dyspnea GI Reports abdominal pain, Reports GI cramping and Reports excessive flatus Musc Denies no additional complaints Neuro Denies Neuro-related abnormal movements and Reports headache(s) Psych Denies no additional complaints, Reports anxiety, Reports irritability and Reports panic attacks Ras/Lymph Denies easy bleeding and Denies lymphadenopathy Aller/Immun Denies lip swelling and Denies tongue swelling Physical Exam Vital Signs: Last Vital Signs Pulse 78 08/14/24 09:18 BP 122/80 08/14/24 09:18 Pulse Ox 96 08/14/24 09:18 Oxygen Delivery Method Room Air 08/14/24 09:18 BMI result Body Mass Index 30.6 Const General: comfortable and alert Neck Neck: Yes normal visual inspection, Yes full ROM and Yes no lymphadenopathy Chest Chest palpation & inspection: normal inspection of the chest Resp Auscultation: clear to auscultation bilaterally Cardio Rate: regular rate Rhythm: regular rhythm Heart sounds: S1 normal heart sound present and S2 normal heart sound present GI Palpation (GI): Soft to palpation and nontender Auscultation: normal bowel sounds Skin General skin exam: rashes and/or lesions noted Assessment & Plan Assessment & Plan (1) CAD (coronary artery disease): Code(s): I25.10 - Atherosclerotic heart disease of [place] coronary artery without angina pectoris Category: Medical Qualifiers: Coronary Disease-Associated Artery/Lesion type: [place] artery [place] vs. transplanted heart: [place] heart Associated angina: without angina Qualified Code(s): I25.10 - Atherosclerotic heart disease of [place] coronary artery without angina pectoris (2) OLAMIDE treated with BiPAP: Code(s): G47.33 - Obstructive sleep apnea (adult) (pediatric) Category: Medical (3) Dyspnea: Code(s): R06.00 - Dyspnea, unspecified Category: Medical Qualifiers: Dyspnea type: dyspnea on exertion Qualified Code(s): R06.09 - Other forms of dyspnea (4) Insomnia: Code(s): G47.00 - Insomnia, unspecified Category: Medical Qualifiers: Insomnia type: primary Qualified Code(s): F51.01 - Primary insomnia Plan Not tolerating BIPAP, will trial F40 requesting oral mandibular device, will refer to dental specialist continue cardioprotective meds Melatonin for sleep F/U 6-8 months Coding Level of Care Code Est Pt Level 4 (40302) Diagnoses Coronary artery disease involving [place] coronary artery of [place] heart without angina pectoris I25.10 Coronary Disease-Associated Artery/Lesion type: [place] artery [place] vs. transplanted heart: [place] heart Associated angina: without angina OLAMIDE treated with BiPAP G47.33 Dyspnea on exertion R06.09 Dyspnea type: dyspnea on exertion Primary insomnia F51.01 Insomnia type: primary Time Spent (min) 17
[2024-08-14 09:18] VITALS: BP 122/80; PULSE 78; O2SAT 96; BMI 30.6
--- OUTSIDE RECORDS SUMMARY | 2024-08-14 10:08 | XMS_ITS | Clinical Summary ---
Author Organization [facility] Address [address] [place] [address] Phone Care Team Providers Care Death Surveys Coder Name Role Phone Wood Gardner MD Primary Care Provider [phone] Allergies Active Allergy Reactions Criticality Noted Date Comments Bee Venom Protein (Honey Bee) Anaphylaxis High 01/18 Medications acetaminophen (TYLENOL) 325 mg tablet Take 2 tablets (650 mg total) by mouth every 6 (six) hours if needed. Active aspirin 81 mg EC tablet Take 1 tablet (81 mg total) by mouth 1 (one) time each day. Active atorvastatin (LIPITOR) 80 mg tablet Take 1 tablet (80 mg total) by mouth 1 (one) time each day. Active lisinopriL (PRINIVIL,ZESTR IL) 10 mg tablet Take 1 tablet (10 mg total) by mouth 1 (one) time each day. Active metoprolol tartrate (LOPRESSOR) 25 mg tablet Take 1 tablet (25 mg total) by mouth 2 (two) times a day. 04/27/2022 Active traMADoL (ULTRAM) 50 mg tablet Take 1 tablet (50 mg total) by mouth every 6 (six) hours if needed for moderate pain. 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 Date 09/17/2018. Wt 205#; BMI 30; SE 75 % SM 76 %; spent 16 % of the study in REM. On CPAP @ 6; RDI 1.1 (AHI 0.8), Central apneas 0; Obstructive apneas 0; Mixed apneas 0; hypopneas 4; RERAs 2; and, average oxygen saturation was 95%. For the entire study, PLMs ~20. - 09/17/2018 Pre-study ESS 6. 3/4 RLS symptoms. - Obstructive Sleep Apnea - mild; mostly hypopneas and obstructive apneas; without sleep related hypoventilation by 2018 home polysomnogram. Intractable migraine with aura with status migra inosus 01/06/2016 Lumbago 07/20/2014 Gynecomastia, male 11/04/2009 Overview (07/22/2023): Surgical reduction Encounters Date Type Department Care Team Description 06/08/2024 1:41 PM EST Anesthesia Event [facility] Endoscopy [address] [place] [address] Robbi Hanna MD 06/08/2024 12:24 PM EST - 06/08/2024 11:59 PM EST Hospital Encounter [facility] Endoscopy [address] [place] [address] Halle España MD Dasilva, John E, MD Special screening for malignant neoplasms, colon Discharge Disposition: Home or Self Care from Last 3 Months Immunizations Name Administration Dates Next Due Td Tetanus diptheria (Tdvax) 7yo and older 05/27 Surgical History Surgery Date Site/Laterality Comments HAND SURGERY PROCEDURE: HISTORICAL HAND SURGERY BACK SURGERY PROCEDURE: HISTORICAL BACK SURGERY; COMMENT: Fusion lumbar 2013 OTHER SURGICAL HISTORY PROCEDURE: ---- OTHER ----; COMMENT: repeated male mastectomy for gynecomastia OTHER SURGICAL HISTORY 01/2019 PROCEDURE: ---- OTHER ----; COMMENT: PCI with BETO to RCA. [facility] OTHER SURGICAL HISTORY 04/09/2019 PROCEDURE: ---- OTHER ----; COMMENT: PCI with BETO to LCx. Noel Menendez Medical History Medical History Date Comments Gynecomastia, male 11/04/2009 DX:Gynecomast ia, male; COMMENT: Surgical reduction Intractable migraine with au ra with status migrainosus 01/06/2016 DX:Intractable migraine with aura with status migrainosus Lumbago 07/20/2014 DX:Lumbago Obesity (BMI 30.0-34.9) 07/24/2018 DX:Obesi ty (BMI 30.0-34.9) Hypertension Hyperlipidemia H/O heart artery stent Obstructive sleep apnea tarik john with bilevel positive airway pressure (BiPAP) PTSD (post-traumatic stress disorder) History of acute inferior wall AK Family History Medical History Relation Name Comments Diabetes Father HTN, lipids, CA BG x3 at 62 Diabetes Mother dm, htn, lipide rodriguez, oa Other: pacemaker Uncle Relation Name Status Comments Father Alive Mother Alive Sister 8 Alive Uncle Social History Tobacco Use Types Packs/Day Years Used Date Smoking Tobacco: Never Smokeless Tobacco: Never Alcohol Use Standard Drinks/Week Comments Yes 0 (1 standard drink = 0.6 oz pur e alcohol) Interpersonal Safety Answer Date Record ed Physical Abuse 06/08/2024 Verbal Abuse 06/08/2024 Sex and Gender Information Value Date Recorded Sex Assigned at Not on file Legal Sex Male 4:56 AM EST Gender Identity Not on file Sexual Orientation Not on file Obstetrics History Last Filed Vital Signs Vital Sign Reading Time Taken Comments Blood Pressure 130/84 06/08/2024 2:20 PM EST Pulse 77 06/08/2024 2:20 PM EST Temperature 35.6 ??C (96.1 ??F) 06/08/2024 2:00 PM ES T Respiratory Rate 18 06/08/2024 2:20 PM EST Oxygen Saturation 99% 06/08/2024 2:20 PM EST Inhaled Oxygen Concentration - - Weight 92.5 kg (204 lb) 06/08/2024 1:21 PM EST Height 175.3 cm (5' 9 ) 06/08/2024 1:21 PM EST Body Mass Index 30.13 06/08/2024 1:21 PM EST Plan of Treatment Health Maintenance Due Date Last Done Comments Hepatitis B Vaccines (1 of 3 - 19+ 3-dose series) 11/05/1994 Cholesterol Screening (Lipid Panel) 04/29/2022 Depression Screening 04/29/2022 HIV Screening 04/29/2022 Hepatitis C Screening 04/29/2022 Social Influencers of Health Screening 04/29/2022 COVID-19 Vaccine (3 - 2023-2 5 season) 2024 09/07/2020, 08/10/2020 Influenza Vaccine (#1) 2024 , 06/14/2021 DTaP,Tdap,and Td Vaccines (3 - Td or Tdap) 12/24/2033 12/25/2023, 05/27/2006 Colorectal Cancer Screening: Colonoscopy 06/08/2034 06/08/2024 HIB Vaccines Aged Out No longer eligi ble based on patient's age to complete this topic HPV Vaccines Aged Out No longer eligi ble based on patient's age to complete this topic Hepatitis A Vaccines Aged Out No long er eligible based on patient's age to complete this topic IPV Vaccines Aged Out No longer eligi ble based on patient's age to complete this topic MMR Vaccines Aged Out No longer eligi ble based on patient's age to complete this topic Meningococcal ACWY Vaccine Aged Out N o longer eligible based on patient's age to complete this topic Meningococcal B Vacine Aged Out No lo nger eligible based on patient's age to complete this topic Pneumococcal Vaccine: Pediatrics (0 to 5 Years) and At-Risk Patients (6 to 64 Years) Aged Out No longer eligible b ased on patient's age to complete this topic RSV Immunization Patients Under 20 months Aged Out No longer eligible b ased on patient's age to complete this topic Varicella Vaccines Aged Out No longer eligible based on patient's age to complete this topic Procedures Procedure Name Priority Date/Time Associated Diagnosis Comments COLONOSCOPY Routine 06/08/2024 1:59 PM EST Special screening for malignant neoplasms, colon from Last 3 Months Results * COLONOSCOPY Anesthesia - MAC; [facility] ENDOSCOPY (06/08/2024 1:59 PM EST) Anatomical Region Laterality Modality Endoscopy 06/08/2024 1:45 PM EST Impressions 06/08/2024 2:00 PM EST - The entire examined colon is normal on direct and ? retroflexion views. ? - No specimens collected. Recommendation: ?- Discharge patient to home. ? - Repeat colonoscopy in 10 years for screening ? purposes. Narrative 06/08/2024 2:00 PM EST [facility] GI Patient Name: Maximino Plascencia Procedure Date: 06/08/2024 1:45 PM Date of : 1975 Age: 48 Gender: Male Note Status: Finalized Attending MD: Halle España MD, Procedure Date No Time: 06/08/2024 Procedure: ? Colonoscopy Indications: ? Screening for colorectal malignant neoplasm Providers: ? Halle España MD Referring MD: ?Halle España MD Medicines: ? Monitored Anesthesia Care Complications: ? No immediate complications. Estimated Blood Loss: ? Estimated blood loss: none. Procedure: ? Pre-Anesthesia Assessment: ? - Prior to the procedure, a History and Physical was ? performed, and patient medications and allergies were ? reviewed. The patient is competent. The risks and ? benefits of the procedure and the sedation options and ? risks were discussed with the patient. All questions ? were answered and informed consent was obtained. ? Patient identification and proposed procedure were ? verified by the physician, the nurse, the custom shoemaker ? and the hvac technician in the pre-procedure area in the ? endoscopy suite. Mental Status Examination: alert and ? oriented. Airway Examination: normal oropharyngeal ? airway and neck mobility. Respiratory Examination: ? clear to auscultation. CV Examination: normal. ? Prophylactic Antibiotics: The patient does not require ? prophylactic antibiotics. Prior Anticoagulants: The ? patient has taken no anticoagulant or antiplatelet ? agents. ASA Grade Assessment: II - A patient with mild ? systemic disease. After reviewing the risks and ? benefits, the patient was deemed in satisfactory ? condition to undergo the procedure. The anesthesia ? plan was to use monitored anesthesia care (MAC). ? Immediately prior to administration of medications, ? the patient was re-assessed for adequacy to receive ? sedatives. The heart rate, respiratory rate, oxygen ? saturations, blood pressure, adequacy of pulmonary ? ventilation, and response to care were monitored ? throughout the procedure. The physical status of the ? patient was re-assessed after the procedure. ? After I obtained informed consent, the scope was ? passed under direct vision. Throughout the procedure, ? the patient's blood pressure, pulse, and oxygen ? saturations were monitored continuously. The Olympus ? Colonoscope was introduced through the anus and ? advanced to the cecum, identified by appendiceal ? orifice and ileocecal valve. The colonoscopy was ? performed without difficulty. The patient tolerated ? the procedure well. The quality of the bowel ? preparation was good. Findings: ?The perianal and digital rectal examinations were ? normal. ? The entire examined colon appeared normal on direct ? and retroflexion views. Procedure Code(s): ? --- Professional --- ? G0121, Colorectal cancer screening; colonoscopy on ? individual not meeting criteria for high risk Diagnosis Code(s): ? --- Professional --- ? Z12.11, Encounter for screening for malignant neoplasm ? of colon CPT copyright 2020 [employer]. All rights reserved. The codes documented in this report are preliminary and upon coder operator review may be revised to meet current compliance requirements. Halle España MD 06/08/2024 2:00:24 PM This report has been signed electronically.Halle España MD Number of Addenda: 0 Note Initiated On: 06/08/2024 1:45 PM Scope Withdrawal Time: 0 hours 9 minutes 0 seconds Scope In: 1:47:54 PM Scope Out: 1:59:00 PM ? Endoscopy Department at [facility] - [address] [place] [address], ? [place] [address] Procedure Note Halle España MD - 06/08/2024 [facility] GI Patient Name: Maximino Plascencia Procedure Date: 06/08/2024 1:45 PM Date of : 1975 Age: 48 Gender: Male Note Status: Finalized Attending MD: Halle España MD, Procedure Date No Time: 06/08/2024 Procedure: Colonoscopy Indications: Screening for colorectal malignant neoplasm Providers: Halle España MD Referring MD: Halle España MD Medicines: Monitored Anesthesia Care Complications: No immediate complications. Estimated Blood Loss: Estimated blood loss: none. Procedure: Pre-Anesthesia Assessment: - Prior to the procedure, a History and Physicalwas performed, and patient medications and allergieswere reviewed. The patient is competent. The risks and benefits of the procedure and the sedation optionsand risks were discussed with the patient. Allquestions were answered and informed consent was obtained. Patient identification and proposed procedure were verified by the physician, the nurse, theanesthetist and the hvac technician in the pre-procedure area in the endoscopy suite. Mental Status Examination: alertand oriented. Airway Examination: normal oropharyngeal airway and neck mobility. Respiratory Examination: clear to auscultation. CV Examination: normal. Prophylactic Antibiotics: The patient does notrequire prophylactic antibiotics. Prior Anticoagulants: The patient has taken no anticoagulant or antiplatelet agents. ASA Grade Assessment: II - A patient withmild systemic disease. After reviewing the risks and benefits, the patient was deemed in satisfactory condition to undergo the procedure. The anesthesia plan was to use monitored anesthesia care (MAC). Immediately prior to administration of medications, the patient was re-assessed for adequacy to receive sedatives. The heart rate, respiratory rate, oxygen saturations, blood pressure, adequacy of pulmonary ventilation, and response to care were monitored throughout the procedure. The physical status ofthe patient was re-assessed after the procedure. After I obtained informed consent, the scope was passed under direct vision. Throughout theprocedure, the patient's blood pressure, pulse, and oxygen saturations were monitored continuously. TheOlympus Colonoscope was introduced through the anus and advanced to the cecum, identified by appendiceal orifice and ileocecal valve. The colonoscopy was performed without difficulty. The patient tolerated the procedure well. The quality of the bowel preparation was good. Findings: The perianal and digital rectal examinations were normal. The entire examined colon appeared normal on direct and retroflexion views. Procedure Code(s): --- Professional --- G0121, Colorectal cancer screening; colonoscopy on individual not meeting criteria for high risk Diagnosis Code(s): --- Professional --- Z12.11, Encounter for screening for malignantneoplasm of colon CPT copyright 2020 [employer]. All rights reserved. The codes documented in this report are preliminary and upon coder operator reviewmay be revised to meet current compliance requirements. Halle España MD 06/08/2024 2:00:24 PM This report has been signed electronically.Halle España MD Number of Addenda: 0 Note Initiated On: 06/08/2024 1:45 PM Scope Withdrawal Time: 0 hours 9 minutes 0 seconds Scope In: 1:47:54 PM Scope Out: 1:59:00 PM Endoscopy Department at [facility] - [address] [place] [id number] IMPRESSION: - The entire examined colon is normal on direct and retroflexion views. - No specimens collected. Recommendation: - Discharge patient to home. - Repeat colonoscopy in 10 years for screening purposes. Halle España MD GI~PROCEDURE ORDERABLES Fin al Result from Last 3 Months Insurance [employer] Care Teams Death Surveys Coder Relationship Specialty Start Date End Date Wood Gardner MD [address] [place] [id number] PCP - General 12/07/03
== END 2024-08-14 09:53 | disposition home or self-care (01) ==
PROVIDERS: PCP Internal Medicine; Visit Provider Hospitalist
DX: I25.10 Atherosclerotic heart disease of native coronary artery without angina pectoris (principal); G47.33 Obstructive sleep apnea (adult) (pediatric); R06.09 Other forms of dyspnea; F51.01 Primary insomnia
CPT/HCPCS: 99214

== ENCOUNTER 2025-02-12 08:55 | Outpatient (AMB) | payer OTHER, SELFPAY ==
[2025-02-12 09:16] VITALS: BP 116/72; PULSE 76; O2SAT 97; BMI 28.6
--- NOTE | 2025-02-12 09:16 | A.OFFVIS_ITS ---
Vital Signs 02/12/25 09:16 Height 5 ft 9 in Weight 194 lb 0.108 oz BMI 28.6 BP 116/72 Blood Pressure Location Lt brachial Position Sitting Pulse 76 Pulse Source Pulse Oximeter Pulse Oximetry (%) 97 Oxygen Delivery Method Room Air Intake Visit Reasons: Asthma Vendor Management Consultant Required: No Accompanied by: Self / Same As Patient Allergies Bee Stings Allergy (Mild, Uncoded 08/14/24 09:21) Hives HPI Comments Details: The patient is a 49-year-old gentleman with a known history of CAD status post PCI in addition to obstructive sleep apnea on CPAP. He did recover from the COVID-19 infection and at the time had issues with shortness of breath and coughing that were persistent 4 months. Therefore became difficult for him to tolerate the CPAP. During the last visit we talked about the importance of going back on it. We had decrease the pressure down to CPAP of 6. even that low pressure is hard for him to use the machine. He has been using a nasal mask. We did have him use the nasal mask and coming for follow-up. Today he did bring his machine in we were able to downloaded. Last night his AHI was up to 34. the average for the week has been around 12.7 events per hour. He understands this too much in the level of CPAP support does not appear to be enough for him. Therefore we adjusted his machine and provide him with a fullface mask. He will try to get uses a fullface mask and will try to slowly increase the CPAP pressure. If he cannot tolerate the CPAP pressure and or his AHI continues to be elevated then a CPAP titration study will be warranted as he may benefit from a BiPAP because of difficulties with CPAP. 02/06/2023 the patient is here for pulmonary follow-up visit. The patient has not been using the BiPAP. He is having significant amount of stress in his life and sometimes he falls asleep without the BiPAP. He has a hard time putting the BiPAP on because then he has difficulty sleeping already. Therefore we talked about alternative options such as positional therapy. Will go ahead and request an overnight oximetry to assess his oxygen his heart rate specially because he has significant cardiovascular disease. Therefore he can try positional therapy and we can assess his progress. Otherwise we can consider a dental appliance. Currently he does have 1 wisdom tooth that is causing significant pain and likely needs to be removed. Therefore I will give him a course of antibiotics. He can not talk to the dentist regarding a oral mandibular device. Otherwise I can refer him to a local dentist that may be able to help him with that. The other option would be a hypoglossal nerve stimulator. The patient is not inte rested in any surgical interventions at this time. Will continue to discuss alternatives. He understands that the gold standard in the best treatment for his underlying obstructive sleep apnea is to go back to the BiPAP. The patient is also describing some chest tightness. He is has issues with anxiety and panic attacks. He had 1 episode recently in [place]. The patient gets very worked up very stressed. The patient denies any wheezing or chest tightness from bronchospasms. If he continues to have symptoms will request pulmonary function studies to assess for small airways disease and for the need of bronchodilator therapy. 08/09/2023 the patient is here for a pulmonary follow-up visit. Overall the patient has been doing okay from a respiratory status. Unfortunately his BiPAP stop working. It will not turn on. Therefore he thought that the [employer] may have remotely stop the machine from working. I did emphasize to him that they would not do that. Most likely machine is not working correctly or the plug is not working. Therefore, I did call the [employer] company. They will reach out to him to see how they can evaluate the machine. The meantime he is going to try different plug or cord. Should be using it. When he does not use it he does have evidence of documented sleep apnea from his . She has not wake him up. He understands he has a cardiac condition and has increased cardiovascular risk if he does not use the BiPAP or the PAP therapy. Therefore, once this working he should start using it quickly. He will bring it into the next visit. From a respiratory status is doing well. He has not required any rescue inhaler. He continues to have the issues with anxiety and stress specially since they are taking care of multiple people at this time including parents and children and grandchildren. He has not been exercising as much. He is gaining weight. He knows that he needs to start exercising regularly because the wait will also worsen his sleep apnea and also cardiovascular risk. 04/17/2024 The patient is here for a pulmonary follow up visit. The patient has not been using the BIPAP. Has not been able to sleep with it. He does have i ncrease time time drowsiness and panic attacks. His EPWORTH score is elevated at 10/24. The patient has significant cardiovascular risk factors. Would be beneficial to repeat a sleep study to assess his degree of OLAMIDE in order to consider further adjustments of his PAP therapy or alternative therapies. The patient also has been having insomnia. He does not want to take any rx medicine for it. He is willing to take Melatonin. I will send a script to the pharmacy. We tried scheduling a sleep study, but insurance declined. I did provide him with a f40 mask that I want him to start using. He will start using the BIPAP at this time. In the meantime his breathing is well. 08/14/2024 the patient is here for pulmonary follow-up visit. Overall he is doing okay. Starting to exercise more regularly. He is also going to the trach and working on his aerobic capacity which is reassuring. Denies any chest pains or any significant shortness of breath. He has a hard time with his BiPAP. He does have moderate degree of sleep apnea based on his sleep study and does have significant cardiovascular risk factors including heart attack. Therefore is important to treat his sleep apnea. He understands that. Although we tried CPAP sent BiPAP since he does not seem to be able to tolerated sufficient enough. Therefore, we did talk about alternative therapies including a oral mandibular advancement device. 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 I will give her a for him to a dentist . Provide him with 1. At this point he has tried and failed the gold standard which is PAP therapy. And now will go ahead and try the oral mandibular device. Once he is tablets with morning used to it then we can request a sleep study to make sure that is working adequately. 02/12/2025 the patient is here for pulmonary follow-up visit. Overall the patient has been doing okay. He does complaint of achiness specially send the elbows. He is exercising regularly. He does take at high dose of Lipitor because of his cardioprotective medications. 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 In the meantime he is not using the CPAP. He does has some daytime drowsiness. His [place] score is elevated 11/24. He understands that not treating the sleep apnea results in increased cardiovascular disease. He did see the dentist but he has not gotten any kind alternative therapies. We did talk about the hypoglossal nerve stimulator. However, he is concerned about any potential anesthesia or surgical procedures at this time. He is ready to get so therefore will hold off on any additional testing right now though will follow- up sometime in the spring and prior to the next appointment will have him get a home sleep study to readdress the question of his degree of sleep apnea in order to effectively be able to treat it and help him with his cardiovascular risk factors. The patient is also having significant back pain. He has had already back surgeries and significant back issues. [facility] Medical History (Updated 12/11/23 @ 21:51 by Maximino Plascencia MD) Insomnia OLAMIDE treated with BiPAP PTSD (post-traumatic stress disorder) Dyspnea OLAMIDE on CPAP CAD (coronary artery disease) OLAMIDE (obstructive sleep apnea) Social History Patient Tobacco Use Status: Never used Tobacco Review of Systems Const Reports daytime sleepiness, Reports difficulty sleeping, Reports headache(s), Denies night sweats and Reports weight gain ENT Denies change in voice, Reports headache(s), Denies lip swelling, Denies mouth pain, Reports nasal congestion, Reports nasal discharge and Denies tongue swelling Card Denies chest pain and Denies dyspnea Resp Denies cough and Denies dyspnea GI Reports no additional complaints Musc Reports back pain and Reports arthralgias Neuro Denies Neuro-related abnormal movements and Reports headache(s) Psych Denies no additional complaints, Reports anxiety, Reports irritability and Reports panic attacks Ras/Lymph Denies easy bleeding and Denies lymphadenopathy Aller/Immun Denies lip swelling and Denies tongue swelling Physical Exam Vital Signs: Last Vital Signs Pulse 76 02/12/25 09:16 BP 116/72 02/12/25 09:16 Pulse Ox 97 02/12/25 09:16 Oxygen Delivery Method Room Air 02/12/25 09:16 BMI result Body Mass Index 28.6 Const General: comfortable and alert Neck Neck: Yes normal visual inspection, Yes full ROM and Yes no lymphadenopathy Chest Chest palpation & inspection: normal inspection of the chest Resp Auscultation: clear to auscultation bilaterally Cardio Rate: regular rate Rhythm: regular rhythm Heart sounds: S1 normal heart sound present and S2 normal heart sound present GI Palpation (GI): Soft to palpation and nontender Auscultation: normal bowel sounds Skin General skin exam: rashes and/or lesions noted Assessment & Plan Assessment & Plan (1) CAD (coronary artery disease): Code(s): I25.10 - Atherosclerotic heart disease of [place] coronary artery without angina pectoris Category: Medical Qualifiers: Associated angina: without angina Coronary Disease-Associated Artery/Lesion type: [place] artery [place] vs. transplanted heart: [place] heart Qualified Code(s): I25.10 - Atherosclerotic heart disease of [place] coronary artery without angina pectoris (2) OLAMIDE treated with BiPAP: Code(s): G47.33 - Obstructive sleep apnea (adult) (pediatric) Category: Medical (3) Dyspnea: Code(s): R06.00 - Dyspnea, unspecified Category: Medical Qualifiers: Dyspnea type: dyspnea on exertion Qualified Code(s): R06.09 - Other forms of dyspnea (4) Insomnia: Code(s): G47.00 - Insomnia, unspecified Category: Medical Qualifiers: Insomnia type: primary Qualified Code(s): F51.01 - Primary insomnia Plan Not tolerating BIPAP Repeat Home PSG in 3-4 months continue cardioprotective meds Melatonin for sleep F/U 6 months Orders: Orders RT home sleep study Today G47.33 - Obstructive sleep apnea (adult) (pediatric) Medications: New ibuprofen 600 mg PO Q8H PRN 30 tabs 0RF pain 30 days Coding Level of Care Code Est Pt Level 4 (49256) Diagnoses Coronary artery disease involving [place] coronary artery [place] heart without angina pectoris I25.10 Associated angina: without angina Coronary Disease-Associated Artery/Lesion type: [place] artery [place] vs. transplanted heart: [place] heart OLAMIDE treated with BiPAP G47.33 Dyspnea on exertion R06.09 Dyspnea type: dyspnea on exertion Primary insomnia F51.01 Insomnia type: primary Time Spent (min) 16
--- OUTSIDE RECORDS SUMMARY | 2025-02-12 09:39 | XMS_ITS | Clinical Summary ---
Author Organization [facility] Address [address] [place] [address] Phone Care Team Providers Care Patient Coordinator Front Desk Name Role Phone Wood Gardner MD Primary Care Provider [phone] Allergies Active Allergy Reactions Criticality Noted Date [...] COVID-19 virus infection 09/15/2019 Inferior myocardial infarction (CMS/HCC V24, CMS /HCC V28) 03/04/2019 Low HDL (under 40) 03/04/2019 PLMD (periodic limb movement disorder) 9 Obesity (BMI 30.0-34.9) 07/24/2018 Obstructive sleep apnea 12/22/2017 Overview (07/22/2023): [facility] Home Polysomnogram: Date 12/19/2017; AHI 11, Unclassified [...] Gynecomastia, male 11/04/2009 Overview (07/22/2023): Surgical reduction Immunizations Name Administration Dates Next Due Td Tetanus diptheria (Tdvax) 7yo and older 05/27 Surgical History Surgery Date Site/Laterality Comments HAND SURGERY PROCEDURE: HISTORICAL HAND SURGERY BACK SURGERY PROCEDURE: HISTORICAL BACK SURGERY; COMMENT: Fusion lumbar 2012 OTHER SURGICAL HISTORY PROCEDURE: ---- OTHER ----; COMMENT: repeated male mastectomy for gynecomastia OTHER SURGICAL HISTORY 01/2019 PROCEDURE: ---- OTHER ----; COMMENT: PCI with BETO to RCA. [facility] OTHER SURGICAL HISTORY 04/09/2019 PROCEDURE: ---- OTHER [...] stress disorder) History of acute inferior wall MD Family History Medical History Relation Name Comments [...] 77 06/08/2024 2:20 PM EST Temperature 35.6 C (96.1 F) 06/08/2024 2:00 PM EST Respiratory Rate 18 06/08/2024 2:20 PM EST [...] series) 11/05/1994 Cholesterol Screening (Lipid Panel) 04/29/2022 HIV Screening 04/29/2022 Hepatitis C Screening 04/29/2022 Social Influencers of Health Screening 04/29/2022 Depression Screening 05/27/2024 COVID-19 Vaccine (3 - 2024-2 6 season) 2025 09/07/2020, 08/10/2020 Influenza Vaccine (#1) 2025 , 06/14/2021 DTaP,Tdap,and Td Vaccines (3 - [...] age to complete this topic Meningococcal B Vaccine Aged Out No l onger eligible based on patient's age to complete this topic Pneumococcal Vaccine: Pediatrics (0 to 5 Years) and At-Risk Patients (6 to 49 Years) Aged Out No longer eligible b [...] malignant neoplasms, colon from Last 3 Months or Most Recently Relevant to Health Maintenance Results * COLONOSCOPY Anesthesia - MAC; [facility] ENDOSCOPY (06/08/2024 1:59 PM EST) Anatomical Region Laterality Modality Endoscopy 06/08/2024 1:45 PM EST Impressions 06/08/2024 2:00 PM EST - The entire examined colon is normal on direct and retroflexion views. - No specimens collected. Recommendation: - Discharge patient to home. - Repeat colonoscopy in 10 years for screening purposes. Narrative 06/08/2024 2:[address] [facility] Patient Name: Maximino Plascencia Procedure Date: [...] the procedure, a History and Physical was performed, and patient medications and allergies were reviewed. The patient is competent. The risks and benefits of the procedure and the sedation options and risks were discussed with the patient. All questions were answered and informed consent was obtained. Patient identification and proposed procedure were verified by the physician, the nurse, the strategic marketing leader and the plant maintenance technician in the pre-procedure area in the endoscopy suite. Mental Status Examination: alert and oriented. Airway Examination: normal oropharyngeal airway and neck mobility. Respiratory Examination: clear to auscultation. CV Examination: normal. Prophylactic Antibiotics: The patient does not require prophylactic antibiotics. Prior Anticoagulants: The patient has taken no anticoagulant or antiplatelet agents. ASA Grade Assessment: II - A patient with mild systemic disease. After reviewing the risks and [...] monitored throughout the procedure. The physical status of the patient was re-assessed after the procedure. After I obtained informed consent, the scope was passed under direct vision. Throughout the procedure, the patient's blood pressure, pulse, and oxygen saturations were monitored continuously. The Olympus Colonoscope was introduced through the anus and [...] Professional --- Z12.11, Encounter for screening for malignant neoplasm of colon CPT copyright 2020 [employer]. All rights reserved. The codes documented in this report are preliminary and upon boiler riveter review may be revised to meet current compliance requirements. Halle España MD 06/08/2024 2:00:24 PM This report has been signed electronically.Halle España MD Number of Addenda: 0 Note Initiated On: 06/08/2024 1:45 PM Scope Withdrawal Time: 0 hours 9 minutes 0 seconds Scope In: 1:47:54 PM Scope Out: 1:59:00 PM Endoscopy Department at [facility] - [address] [place] [id number] Procedure Note Halle España MD - 06/08/2024 [facility] Patient Name: Maximino Plascencia Procedure Date: [...] the physician, the nurse, theanesthetist and the plant maintenance technician in the pre-procedure area in the [...] for malignantneoplasm of colon CPT copyright 2020 [employer]. All rights reserved. The codes documented in this report are preliminary and upon boiler riveter reviewmay be revised to meet current compliance requirements. Halle España MD 06/08/2024 2:00:24 PM This report has been signed electronically.Halle España MD Number of Addenda: 0 Note Initiated On: 06/08/2024 1:45 PM Scope Withdrawal Time: 0 hours 9 minutes 0 seconds Scope In: 1:47:54 PM Scope Out: 1:59:00 PM Endoscopy Department at [facility] - [address] [place] [id number] IMPRESSION: - The entire examined colon is normal on direct and retroflexion views. - No specimens collected. Recommendation: - Discharge patient to home. - Repeat colonoscopy in 10 years for screening purposes. us Halle España MD GI~PROCEDURE ORDERABLES Fin al Result from Last 3 Months or Most Recently Relevant to Health Maintenance Insurance [employer] Care Teams Patient Coordinator Front Desk Relationship Specialty Start Date End Date Wood Gardner MD [address] [place] [id number] PCP - General Internal Medicine 01/26/25
== END 2025-02-12 09:43 | disposition home or self-care (01) ==
LOC: HO.HPS 08:56
PROVIDERS: PCP Internal Medicine; Visit Provider Hospitalist
DX: I25.10 Atherosclerotic heart disease of native coronary artery without angina pectoris (principal); G47.33 Obstructive sleep apnea (adult) (pediatric); R06.09 Other forms of dyspnea; F51.01 Primary insomnia
CPT/HCPCS: 99214